=== PATIENT | female | born 1955 | race Caucasian/White ===

== ENCOUNTER → 2018-09-22 10:15 | Emergency (ER) | payer BC ==
[~2018-09-22 10:15] MED LIST: Labetalol IV* 5 MG/ML 20 ML VIAL IV PUSH ONE; Lisinopril TAB* 5 MG PO ONE
--- NOTE | 2018-09-22 10:31 | ED ---
Hypertension - HPI Summary HPI Summary: This patient is a 63 year old F presenting to ED with a chief complaint of HTN since yesterday. BP was 192/111 in triage, usually 120/70. The patient rates the pain 1/10 in severity. Symptoms aggravated by nothing. Symptoms alleviated by nothing. Patient reports nausea, mild SHI (since 5/6), and mild bilateral LE edema. Patient denies CP, SOB, and dizziness. The patient reports that his BP medications were changed 3 weeks ago. She used to take Atenolol but then her PCP switched it to Lisinopril. - History of Current Complaint Chief Complaint: EDHypertension Stated Complaint: HIGH BP PER PT Time Seen by Provider: 09/22/18 10:17 Hx Obtained From: Patient Onset/Duration: Started Days Ago, Still Present Timing: Constant, Lasting Days Reported Blood Pressure Prior To Arrival: 192/111 in triage, usually 120/70 Aggravating Factor(s): Nothing Alleviating Factor(s): Nothing Associated Signs & Symptoms: Headaches, Swelling - mild in LE bilaterally, Other : - nausea; denies CP, SOB, and dizziness - Allergies/Home Medications Allergies/Adverse Reactions: Allergies Allergy/AdvReac Type Severity Reaction Status Date / Time No Known Allergies Allergy Verified 09/22/18 10:20 Home Medications: Home Medications Insulin Aspart [Novolog] 0 - 100 unit INJ SEE INSTRUCTIONS 09/22/18 [History Confirmed 09/22/18] Insulin GLARGINE(*) [Lantus(*)] 70 units SUBCUT Q24H 09/22/18 [History Confirmed 09/22/18] Lisinopril TAB* [Prinivil TAB*] 2.5 mg PO DAILY 09/22/18 [History Confirmed 03/03] metFORMIN* [Glucophage 1000 MG TAB *] 1,000 mg PO BID 09/22/18 [History Confirmed 09/22/18] PMH/Surg Hx/FS Hx/Imm Hx Endocrine/Hematology History: Reports: Hx Diabetes Cardiovascular History: Reports: Hx Hypertension Denies: Hx Coronary Artery Disease Infectious Disease History: No Infectious Disease History: Denies: Traveled Outside the [place] in Last 30 Days - Family History Known Family History: Positive: Diabetes - Social History Alcohol Use: Rare Hx Substance Use: No Substance Use Type: Reports: None Hx Tobacco Use: No Smoking Status (MU): Never Smoked Tobacco Review of Systems Positive: Other - high BP (BP was 192/111 in triage, usually 120/70). Negative : Chest Pain Negative: Shortness Of Breath Positive: Nausea Positive: Edema - mild in LE bilaterally Neurological: Other - denies dizziness Positive: Headache - mild All Other Systems Reviewed And Are Negative: Yes Physical Exam - Summary Physical Exam Summary: VITAL SIGNS: Reviewed. GENERAL: Patient is a well-developed and nourished FEMALE who is lying comfortable in the stretcher. Patient is not in any acute respiratory distress. HEAD AND FACE: No signs of trauma. No ecchymosis, hematomas or skull depressions. No sinus tenderness. EYES: PERRLA, EOMI x 2, No injected conjunctiva, no nystagmus. EARS: Hearing grossly intact. Ear canals and tympanic membranes are within normal limits. MOUTH: Oropharynx within normal limits. NECK: Supple, trachea is midline, no adenopathy, no JVD, no carotid bruit, no c- spine tenderness, neck with full ROM. CHEST: Symmetric, no tenderness at palpation LUNGS: Clear to auscultation bilaterally. No wheezing or crackles. CVS: Regular rate and rhythm, S1 and S2 present, no murmurs or gallops appreciated. ABDOMEN: Soft, non-tender. No signs of distention. No rebound no guarding, and no masses palpated. Bowel sounds are normal. EXTREMITIES: FROM in all major joints, no edema, no cyanosis or clubbing. NEURO: Alert and oriented x 3. No acute neurological deficits. Speech is normal and follows commands. SKIN: Dry and warm Triage Information Reviewed: Yes Vital Signs On Initial Exam: Initial Vitals Temp Pulse Resp BP Pulse Ox 97.6 F 70 16 191/104 94 09/22/18 10:17 09/22/18 10:17 09/22/18 10:17 09/22/18 10:17 09/22/18 10:17 Vital Signs Reviewed: Yes Diagnostics - Vital Signs Vital Signs Temp Pulse Resp BP Pulse Ox 09/22/18 10:17 97.6 F 70 16 191/104 94 - Laboratory Result Diagrams: 09/22/18 10:45 09/22/18 10:45 Lab Statement: Any lab studies that have been ordered have been reviewed, and results considered in the medical decision making process. - Radiology CXR Radiology Interpretation Completed By: Radiologist Summary of Radiographic Findings: NO EVIDENCE FOR ACUTE DISEASE. Dr. Jean-Baptiste has reviewed this radiology report. - EKG 1026 Cardiac Rate: NL - 67 BPM EKG Rhythm: Sinus Rhythm Summary of EKG Findings: NSR at 67 BPM, no ST elevations, and normal axis. Re-Evaluation - Re-Evaluation First Eval Re-Evaluation Time: 12:35 Comment: Discussed results with the patient and plan for discharge. Patient understands and agrees with this plan. Hypertension Course/Dx - Course Assessment/Plan: This patient is a 63-year-old female who presents to the emergency department with chief complaint of having increased blood pressure and slight headache. She also reports slight amount of nausea. No vomiting. Denies any chest pain, no shortness of breath, or palpitations. She has past medical history significant for hypertension and diabetes. In the ED course the patient was placed in a child monitor, IV access was obtained, blood pressure was taken and is 191/104. The pulse rate is 70. Therefore, I ordered Lisinopril for HTN. BP is 158/88 manual. After the patient was given the medications her symptoms are resolved, blood pressures of 136/67. Therefore believe that the patient is adjustment of her medication and follow-up with the primary care physician. I discussed all the findings and test results with the patient. Patient was instructed to return to the emergency room immediately if any of the symptoms return worsens. Plan of care was discussed with the patient and understands and agrees. All questions were answered at patient satisfaction. There were no further complaints or concerns. Lung exam before discharge: CTA B/L. Good air exchange. No wheezing or crackles heard. CVS: S1 and S2 present. No murmurs appreciated. Patient is alert and oriented x 3. Patient is hemodynamically stable. Patient will be discharged home with follow up PCP in the next 2-3 days - Diagnoses Differential Diagnosis/HQI PQRI: Hypertension, Hypertensive Crisis, Hypertensive Urgency Provider Diagnoses: Uncontrolled hypertension Discharge - Sign-Out/Discharge Documenting (check all that apply): Patient Departure - discharge Patient Received Moderate/Deep Sedation with Procedure: No - Discharge Plan Condition: Stable Disposition: HOME Patient Education Materials: Hypertension (ED) Referrals: Care [facility] [Outside] - 3 Days Additional Instructions: FOLLOW UP WITH YOUR PRIMARY CARE PROVIDER WITHIN 3 DAYS FOR HIGH BLOOD PRESSURE NOTED TODAY. RETURN TO THE ED FOR ANY WORSENING OR NEW SYMPTOMS. - Billing Disposition and Condition Condition: STABLE Disposition: Home - Attestation Statements Document Initiated by Scribe: Yes Documenting Scribe: Molina Garcia Provider For Whom Logan is Documenting (Include Credential): Molina Jean-Baptiste MD Scribe Attestation: Molina Schulz, scribed for Molina Jean-Baptiste MD on 09/22/18 at 1847. Scribe Documentation Reviewed: Yes Provider Attestation: The documentation as recorded by the Molina goss accurately reflects the service I personally performed and the decisions made by , Molina Jean-Baptiste MD Status of Scribe Document: Viewed
[2018-09-22 10:56] LABS: ABS Eosinophils 0.3 10^3/ul (0-0.6); ABS Lymphocytes 2.6 10^3/ul (1.0-4.8); ABS Monocytes 0.9 10^3/ul (0-0.8); ABS Neutrophils 5.6 10^3/ul (1.5-7.7); Eosinophil % 3.6 %; Hematocrit 42 % (35-47); Hemoglobin 14.2 g/dL (12.0-16.0); Lymphocyte % 27.8 %; Mean Corpuscular HGB Conc 34 g/dL (31-36); Mean Corpuscular Hemoglobin 30 pg (27-31); Mean Corpuscular Volume 88 fL (80-97); Mean Platelet Volume 8.6 fL (7.4-10.4); Nucleated Red Blood Cells % 0.2; Platelet Count 231 10^3/uL (150-450); Red Blood Count 4.79 10^6 /uL (3.70-4.87); Red Cell Distribution Width 13 % (10.5-15); White Blood Count 9.5 10^3/uL (3.5-10.8)
[2018-09-22 11:14] LABS: Troponin I 0.01 ng/mL (<0.04)
[2018-09-22 11:17] LABS: Albumin 3.9 g/dL (3.2-5.2); Albumin/Globulin Ratio 1.3 (1-3); BUN/Creatinine Ratio 21.8 (8-20); Calcium 9.7 mg/dL (8.6-10.3); EGFR Non-African American 74.4 (>60); Potassium 4.2 mmol/L (3.5-5.0); Total Bilirubin 0.6 mg/dL (0.2-1.0); Total Protein 6.9 g/dL (6.4-8.9)
[2018-09-22 11:57] LABS: TSH (Thyroid Stimulating Horm) 1.13 mcIU/mL (0.34-5.60)
[2018-09-22 12:41] VITALS: BP 148/71
== END | disposition home or self-care (01) ==
LOC: ED 10:15
DX: I10 Essential (primary) hypertension (principal); E11.9 Type 2 diabetes mellitus without complications; Z79.4 Long term (current) use of insulin
CPT/HCPCS: 36415; 71045; 80053; 83605; 83880; 84443; 84484; 85025; 93005; 96374; 99283; A9270-GY